=== PATIENT | female | born 1995 | race African-American/Black ===

== ENCOUNTER 2019-07-31 18:25 | Emergency (ER) | payer MEDICAID ==
[~2019-07-31] VITALS: Ht 182.9 cm; Wt 74.8 kg
--- NOTE | 2019-07-31 18:40 | NUR ---
COUGH, CONGESTION, FEVER, CHILLS X 4 DAYS. PATIENT A/OX4, BREATHING EVEN AND UNLABORED, NO SOB NOTED, NEEDS ATTENDED. KEPT COMFORTABLE.
--- NOTE | 2019-07-31 18:49 | NUR ---
DR TIPTON AT BEDSIDE
[2019-07-31] MEDS ORDERED: DEXAMETHASONE SOLN 5 MG/5 ML UDC ONE (18:55)
[2019-07-31] MEDS ORDERED: DEXAMETHASONE SOLN 0.5 MG/5 ML UDC PO ONE (19:00)
[2019-07-31 19:05] VITALS: BP 134/65
--- NOTE | 2019-07-31 19:05 | NUR ---
Patient discharged to home in stable condition. Written and verbal after care instructions given. Patient verbalizes understanding of instruction.
== END 2019-07-31 19:06 | disposition home or self-care (01) ==
LOC: ER 18:32
DX: J04.0 Acute laryngitis (principal)
CPT/HCPCS: 99283; J8540 ×2